=== PATIENT | male | born 1975 | race African-American/Black ===

== ENCOUNTER 2017-11-19 14:34 | Emergency (ER) | payer OTHER ==
[2017-11-19] MEDS: ONDANSETRON 4 MG INJ IV (16:06)
[2017-11-19] MEDS: HYDROmorphONE 1 MG/ML SYG IV (16:07)
[2017-11-19] MEDS: DIAZEPAM 5 MG/ML SYG IV (16:07)
[2017-11-19] MEDS: SOD CHLORIDE 0.9% 1,000 ML IV (16:09)
[2017-11-19 16:37] LABS: ADD MAN DIFF? NO
[2017-11-19 16:39] LABS: BASOPHILS % 0.4 % (0.0-2.0); EOSINOPHILS # 0.1 10^3/ul (0.0-0.5); EOSINOPHILS % 0.9 % (0.0-7.0); HEMATOCRIT 42.9 % (42.0-52.0); LYMPHOCYTES % 30.4 % (15.0-51.0); MEAN CORPUSCULAR HEMOGLOBIN 29.4 pg (29.0-33.0); MEAN CORPUSCULAR HGB CONC 32.6 g/dl (32.0-37.0); MEAN CORPUSCULAR VOLUME 90.1 fl (82.0-101.0); MEAN PLATELET VOLUME 10.1 fl (7.4-10.4); MONOCYTE # 0.4 10^3/ul (0.3-0.9); MONOCYTES % 6.6 % (0.0-11.0); NEUTROPHIL # 4.1 10^3/ul (1.6-7.5); NEUTROPHILS % 61.4 % (39.0-77.0); PLATELET COUNT 208 10^3/UL (140-415); RED BLOOD COUNT 4.76 10^6/ul (4.70-6.10); RED CELL DISTRIBUTION WIDTH 13.5 % (11.5-14.5)
[2017-11-19 16:39] LABS: WHITE BLOOD COUNT 6.7 10^3/ul (4.8-10.8)
[2017-11-19 17:00] LABS: INR 0.89; PROTIME 12.1 Sec (11.9-14.9); PT RATIO 0.9
[2017-11-19 17:01] LABS: ANION GAP 15 (8-16); BLOOD UREA NITROGEN 8 mg/dl (7-20); CALCIUM 9.7 mg/dl (8.4-10.2); CARBON DIOXIDE 31 mmol/L (21-31); CHLORIDE 107 mmol/L (97-110); CREATINE KINASE 279 IU/L (23-200); GLUCOSE 74 mg/dl (70-220); PARTIAL THROMBOPLASTIN TIME 27.9 Sec (25.0-35.0); POTASSIUM 3.8 mmol/L (3.5-5.1); SODIUM 149 mmol/L (135-144)
[2017-11-19 18:02] LABS: URINE BLOOD (Dip) POC Negative (NEGATIVE); URINE GLUCOSE (Dip) POC Negative (NEGATIVE); URINE KETONES (Dip) POC Negative (NEGATIVE); URINE LEUKOCYTE EST (Dip) POC Negative (NEGATIVE); URINE NITRITE (Dip) POC Negative (NEGATIVE); URINE TOTAL PROTEIN POC Negative (NEGATIVE)
== END 2017-11-19 18:14 | disposition home or self-care (01) ==
LOC: E/R 14:34
DX: M79.1 Myalgia (principal); R25.2 Cramp and spasm
CPT/HCPCS: 36415; 80048; 81003; 82550; 85025; 85610; 85730; 93970; 96374; 96375; 99285-25

== ENCOUNTER 2018-03-08 23:16 | Emergency (ER) | payer OTHER ==
[2018-03-09] MEDS: morphine 4 MG/ML VIAL IM (01:03)
[2018-03-09] MEDS: KETOROLAC 60 MG INJ IM (01:03)
[2018-03-09] MEDS: ONDANSETRON (ODT) 4 MG TAB ODT (01:03)
[2018-03-09] MEDS: HYDROmorphONE 0.5 MG/0.5 ML SYG IM (02:07)
== END 2018-03-09 02:15 | disposition home or self-care (01) ==
LOC: E/R 23:16
DX: S90.01XA Contusion of right ankle, initial encounter (principal); W05.0XXA Fall from non-moving wheelchair, initial encounter; Y92.9 Unspecified place or not applicable
CPT/HCPCS: 72100; 73610-RT; 96372; 99284-25